=== PATIENT | male | born 1965 | race Caucasian/White ===

== ENCOUNTER → 2016-08-26 | Outpatient (CLI) | payer BC ==
--- NOTE | 2016-08-26 13:49 | RAD ---
Examination: X-rays of the left foot. Clinical history: Unspecified osteoarthritis, elevated immunoglobulin level. Technique: Three views of the left foot were obtained. Comparison: None available. Findings: No acute fracture, dislocation, or destructive bony lesion is noted. Joint space narrowing with questionable ankylosis is seen in the mid tarsal joints. 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 No soft tissue abnormality is noted. Impression: 1. No acute fracture or dislocation. 2. Arthropathy, as described above. Reported By:
--- NOTE | 2016-08-26 13:51 | RAD ---
Examination: X-rays of the right foot. Clinical history: Unspecified osteoarthritis, elevated immunoglobulin levels. Technique: Three views of the right foot were obtained. Comparison: None available. Findings: No acute fracture, dislocation, or destructive bony lesion is noted. Mild joint space narrowing without associated osteophytosis is seen in the mid tarsal joints, sugges tive of an inflammatory arthropathy or osteoarthritis. No soft tissue abnormality is noted. Impression: 1. No acute fracture or dislocation. 2. Arthropathy, as described above. Reported By:
--- NOTE | 2016-08-26 13:58 | RAD ---
HISTORY: Joint pain, right thumb pain Study: Right hand three view Comparison: None Findings: No acute cortical disruption or dislocation is identified. The soft tissues appear unremarkable. T he carpal bones appear aligned without evidence for fracture. the joints are normal. The 1st digit i s intact. IMPRESSION: 1. Negative exam. Reported By:
--- NOTE | 2016-08-26 13:59 | RAD ---
HISTORY: Osteoarthritis, right thumb pain Study: Right hand three view Comparison: None Findings: No acute cortical disruption or dislocation is identified. The soft tissues appear unremarkable. T he carpal bones appear aligned without evidence for fracture. the joints are normal. The 1st digit i s intact. IMPRESSION: 1. Negative exam. Reported By:
== END ==
LOC: RAD 12:42
PROVIDERS: ATTEND Internal Medicine Rheumatology
DX: R76.8 Other specified abnormal immunological findings in serum (principal); M19.90 Unspecified osteoarthritis, unspecified site
CPT/HCPCS: 73130; 73630

== ENCOUNTER → 2017-01-20 | Outpatient (CLI) | payer BC ==
--- NOTE | 2017-01-22 16:55 | RAD ---
HISTORY: Nontraumatic hand pain Study: 3 views of the left hand. Comparison: None Findings: No acute fractures or dislocations. The carpal bones appear well aligned. The visualized portions of the distal radius and ulna are unremarkable. Joint spaces of the finger are maintained. No signific ant soft tissue abnormality. IMPRESSION: 1. No acute abnormalities of the left hand. Reported By:
--- NOTE | 2017-01-22 16:56 | RAD ---
HISTORY: Foot pain Study: 3 views of the left foot. Comparison: None Findings: No acute fracture or dislocation. Joint spaces are well aligned. No significant soft tissue swelling or injury can be seen. IMPRESSION: 1. No acute abnormalities in the left foot. Reported By:
--- NOTE | 2017-01-22 16:56 | RAD ---
HISTORY: Foot pain Study: 3 views of the right foot. Comparison: None Findings: No acute fracture or dislocation. Joint spaces are well aligned. No significant soft tissue swelling or injury can be seen. IMPRESSION: 1. No acute abnormalities in the right foot. Reported By:
--- NOTE | 2017-01-22 16:57 | RAD ---
HISTORY: Hand pain Study: 3 views of the right hand. Comparison: None Findings: No acute fractures or dislocations. The carpal bones appear well aligned. The visualized portions of the distal radius and ulna are unremarkable. Joint spaces of the finger are maintained. No signific ant soft tissue abnormality. IMPRESSION: 1. No acute abnormalities of the right hand. Reported By:
== END ==
LOC: RAD 09:15
PROVIDERS: ATTEND Nurse Practitioner Family
DX: M79.642 Pain in left hand (principal); M79.641 Pain in right hand; M15.8 Other polyosteoarthritis; M79.671 Pain in right foot; M79.672 Pain in left foot
CPT/HCPCS: 73130; 73630